=== PATIENT | female | born 1955 | race Caucasian/White ===

== ENCOUNTER → 2020-10-31 | Outpatient (CLI) | payer MEDICARE ==
[~2020-10-31] MED LIST: PROHANCE 279.3MG/ML 15ML VIAL ONE; PROHANCE 279.3MG/ML 5ML VIAL ONE
--- NOTE | 2020-10-31 16:38 | REPVR ---
PROCEDURE INFORMATION: Exam: MR Head Without and With Contrast Exam date and time: 10/31/2020 10:28 AM Age: 65 years old Clinical indication: Dizziness; Additional info: R20.2 tingling o sk r68.89 r42 dizziness giddiness TECHNIQUE: Imaging protocol: MR of the head without and with intravenous contrast. Contrast material: PROHANCE; Contrast volume: 17 ml; Contrast route: INTRAVENOUS (IV); COMPARISON: No relevant prior studies available. FINDINGS: Brain: Mild scattered nonspecific T2/FLAIR hyperintensities of the periventricular and deep subcortical white matter, most likely secondary to chronic small vessel ischemic change. No intracranial hemorrhage or extra-axial fluid collection. No evidence of mass effect or midline shift. No restricted diffusion to suggest acute infarct. No abnormal intracranial enhancement. Cerebral ventricles: Normal. No ventriculomegaly. Bones/joints: Unremarkable. Paranasal sinuses: Normal as visualized. No acute sinusitis. Mastoid air cells: No mastoid effusion. Orbital cavity: Unremarkable. Soft tissues: Unremarkable. IMPRESSION: 1. No acute intracranial pathology. 2. Chronic findings, as above. Electronically signed by: Zach He On 10/31/2020 16:38:13 PM
== END ==
LOC: M PLAIMG 09:26
PROVIDERS: ATTEND Nurse Practitioner Family
DX: R20.2 Paresthesia of skin (principal); R68.89 Other general symptoms and signs; R42 Dizziness and giddiness; R53.83 Other fatigue
CPT/HCPCS: 70553; A9576

== ENCOUNTER → 2020-11-26 | Outpatient (CLI) | payer MEDICARE | LOC: M LABSMTC 10:36 | PROVIDERS: ATTEND Internal Medicine Cardiovascular Disease | DX: Z20.822 Contact with and (suspected) exposure to COVID-19 (principal) ==

== ENCOUNTER 2021-10-20 21:21 | Emergency (ER) | payer MEDICARE ==
[~2021-10-20] VITALS: Ht 162.6 cm; Wt 87.8 kg
[2021-10-20] MEDS ORDERED: LEVO88TA3 (21:55)
[2021-10-20] MEDS ORDERED: EZET10TA21 (21:55)
[2021-10-20] MEDS ORDERED: PANT40TA29 (21:55)
[2021-10-20] MEDS ORDERED: FURO20TA2 (21:55)
[2021-10-20] MEDS ORDERED: CYMB60CA4 (21:55)
[2021-10-20] MEDS ORDERED: ROSU20TA5 (21:55)
[2021-10-20] MEDS ORDERED: LISI20TA33 (21:55)
[2021-10-20] MEDS ORDERED: ACET500P3 PO (22:00)
[2021-10-20] MEDS ORDERED: ECOT81TA5 PO (22:00)
[2021-10-20 22:15] LABS: BASO % 0.2 % (0.0-1.0); EOS % 0.9 % (0.0-3.0); HEMATOCRIT 40.6 % (36.0-47.0); HEMOGLOBIN 13.2 g/dl (12.0-15.5); LYMPH # 1.4 10^3/uL (1.5-5.0); LYMPH % 30.5 % (24.0-44.0); MEAN CORPUSCULAR HEMOGLOBIN 30.9 pg (27.0-33.0); MEAN CORPUSCULAR HGB CONC 32.5 g/dl (32.0-36.5); MEAN CORPUSCULAR VOLUME 95.1 fl (80.0-96.0); MONO # 0.6 10^3/uL (0.0-0.8); NEUTROPHILS # 2.6 10^3/uL (1.5-8.5); NEUTROPHILS % 55.2 % (36.0-66.0); PLATELET COUNT, AUTOMATED 157 10^3/uL (150-450); RED BLOOD COUNT 4.27 10^6/uL (4.00-5.40); WHITE BLOOD COUNT 4.7 10^3/uL (4.0-10.0)
[2021-10-20 22:25] LABS: BLOOD UREA NITROGEN 11 MG/DL (7-18); CALCIUM LEVEL 8.8 MG/DL (8.8-10.2); CARBON DIOXIDE LEVEL 23 MEQ/L (21-32); CHLORIDE LEVEL 112 MEQ/L (98-107); CREATININE FOR GFR 0.82 MG/DL (0.55-1.30); GLOMERULAR FILTRATION RATE > 60.0 (>45); GLUCOSE, FASTING 99 MG/DL (70-100); MAGNESIUM LEVEL 1.8 MG/DL (1.8-2.4); POTASSIUM SERUM 3.7 MEQ/L (3.5-5.1); SODIUM LEVEL 145 MEQ/L (136-145)
[2021-10-20 22:29] LABS: CK-MB VALUE MASS < 1.0 NG/ML (<3.6); CPK CREATINE PHOSPHOKINASE 62 U/L (26-192); MB/CK RELATIVE INDEX 1.61 (< OR =4)
[2021-10-20] MEDS ORDERED: diazePAM 10MG/2ML SYRINGE (J3360 PER 5MG) IV ONE (23:35)
[2021-10-21 00:17] VITALS: BP 153/76
[2021-10-21] MEDS ORDERED: diazePAM 2 MG TAB PO ONE (00:35)
== END 2021-10-21 00:47 | disposition home or self-care (01) ==
LOC: M ED 21:21
DX: R07.89 Other chest pain (principal); T82.897A Other specified complication of cardiac prosthetic devices, implants and grafts, initial encounter; Z95.0 Presence of cardiac pacemaker; I50.9 Heart failure, unspecified; E03.9 Hypothyroidism, unspecified; E78.5 Hyperlipidemia, unspecified; K21.9 Gastro-esophageal reflux disease without esophagitis; Z90.49 Acquired absence of other specified parts of digestive tract; F32.A Depression, unspecified; Z88.0 Allergy status to penicillin
CPT/HCPCS: 71250; 80048; 82550; 82553; 83735; 84484; 85025; 93005; 96374; 99284; J3360